=== PATIENT | female | born 1955 | race Caucasian/White ===

== ENCOUNTER 2018-10-31 23:44 | Emergency (ER) | payer OTHER ==
[2018-10-31 23:49] VITALS: BP 106/74
[2018-10-31] MEDS ORDERED: PROPARACAINE/FLUORESCEIN SOD 5 ML OPHT.BTL OP ONE (23:51)
[2018-10-31] MEDS ORDERED: FLUORESCEIN SODIUM 1 MG STRIP OP ONE (23:55)
--- NOTE | 2018-11-01 00:03 | EDPHY ---
H & P Stated Complaint: something in L eye x 1 hour, rinsed with no improvement Time Seen by Provider: 10/31/18 23:51 HPI/ROS: HPI The patient presents with left eye pain and foreign body sensation which have been present since this afternoon. She was seated and opened a blanket and then felt as if something went into her left eye. She tried to irrigate her eye at home without any improvement in her symptoms. She feels there is something stuck in her upper eyelid. She does not have any blurry vision or discharge from her eye.. REVIEW OF SYSTEMS 10 systems were reviewed and negative with the exception of the elements mentioned in the history of present illness. PMHx: Healthy, does not wear contact lenses Soc Hx: Housed PHYSICAL General Appearance: Alert, no distress Eyes: Pupils equal and round, reactive to light, left eye with diffuse mild conjunctival injection, on eversion of upper lid there is a 1 mm brown foreign body in the center distal portion of her lid, fluorescein staining demonstrates no uptake Respiratory: Breathing comfortably Neurological: A&O, moves all extremities Psychiatric: Patient is oriented X 3, there is no agitation Source: Patient Exam Limitations: No limitations - Personal History Current Tetanus/Diphtheria Vaccine: Yes Current Tetanus Diphtheria and Acellular Pertussis (TDAP): Yes - Medical/Surgical History Hx Asthma: No Hx Chronic Respiratory Disease: No Hx Diabetes: No Hx Cardiac Disease: No Hx Renal Disease: No Hx Cirrhosis: No Hx Alcoholism: No Hx HIV/AIDS: No Hx Splenectomy or Spleen Trauma: No Other PMH: thyroid - Social History Smoking Status: Never smoked Constitutional: Initial Vital Signs Temperature (C) 36.8 C 10/31/18 23:47 Heart Rate 72 10/31/18 23:47 Respiratory Rate 20 10/31/18 23:47 Blood Pressure 106/74 10/31/18 23:47 O2 Sat (%) 95 10/31/18 23:47 O2 Delivery Mode Room Air Allergies/Adverse Reactions: No Known Allergies Allergy (Unverified 10/31/18 23:46) Home Medications: Medication Instructions Recorded Thyroid 10/31/18 Medical Decision Making Differential Diagnosis: 63-year-old female with left eyelid foreign body which is removed by me with a Q -tip after eversion of her lid. Fluorescein staining performed afterward demonstrating no uptake when visualized using Root lamp. Patient feels completely better after procedure. She will be discharged home. - Data Points Medications Given: Discontinued Medications Proparacaine HCl/Fluorescein Sodium (Flucaine) 2 drops OP EDNOW ONE Stop: 10/31/18 23:52 Last Admin: 11/01/18 00:14 Dose: Not Given Departure - Departure Disposition: Home, Routine, Self-Care Clinical Impression: Foreign body of left eyelid Condition: Good Instructions: Eye Foreign Body (ED) Additional Instructions: When we looked at your cornea, we did not find any scratches, therefore you do not need antibiotics or any special treatment. Return to the ER or follow up with your primary care if your worse in any way. Referrals: ISATU BIRD [Other] - As per Instructions
== END 2018-11-01 00:15 | disposition home or self-care (01) ==
PROC: 08C1XZZ Extirpation of Matter from Left Eye, External Approach (ICD-10-PCS; principal; 2018-10-31)
DX: S00.252A Superficial foreign body of left eyelid and periocular area, initial encounter (principal); X58.XXXA Exposure to other specified factors, initial encounter; Y92.009 Unspecified place in unspecified non-institutional (private) residence as the place of occurrence of the external cause; Y93.9 Activity, unspecified; Y99.9 Unspecified external cause status